=== PATIENT | female | born 1965 | race Caucasian/White ===

== ENCOUNTER → 2018-04-16 | Day surgery (SDC) | payer OTHER ==
[~2018-04-16] MED LIST: CRANBERRY TABL1 EACH PO; FENTANYL CITRATE/PF 100MCG/2 ML INJ ONE; HYOSCYAMINE SULFATE 0.5 MG/ML AMP ONE; LIDOCAINE HCL 2% LOCAL INJ 5 ML SDV VIAL INJ ONE; MIDAZOLAM HCL 2 MG/2 ML VIAL ONE; MULTIVITAMINS1 EAC8 PO; PROPOFOL IV EMULSION 10 MG/ML 50 ML VIAL ONE; SUDAFED PO; VITAMIN D1000 UNI1 PO; XYZAL PO
== END | disposition home or self-care (01) ==
LOC: OR 10:19
PROVIDERS: ATTEND Internal Medicine Gastroenterology
DX: Z12.11 Encounter for screening for malignant neoplasm of colon (principal); K57.30 Diverticulosis of large intestine without perforation or abscess without bleeding; K62.89 Other specified diseases of anus and rectum; K64.8 Other hemorrhoids; K64.4 Residual hemorrhoidal skin tags; N20.0 Calculus of kidney; R00.1 Bradycardia, unspecified; Z88.0 Allergy status to penicillin; Z01.810 Encounter for preprocedural cardiovascular examination
CPT/HCPCS: 45380; 81025; 93005; J1980; J2001; J2250

== ENCOUNTER → 2019-10-28 | Outpatient (CLI) | payer OTHER ==
[~2019-10-28] MED LIST changes: +DIATRIZOATE MEGL/DIATRIZOA SOD 30 ML BTL PO ONE; -FENTANYL CITRATE/PF 100MCG/2 ML INJ ONE; -HYOSCYAMINE SULFATE 0.5 MG/ML AMP ONE; +IOPAMIDOL 370 MG/ML 200 ML INFUS..BTL INJ ONE; -LIDOCAINE HCL 2% LOCAL INJ 5 ML SDV VIAL INJ ONE; -MIDAZOLAM HCL 2 MG/2 ML VIAL ONE; -PROPOFOL IV EMULSION 10 MG/ML 50 ML VIAL ONE; +SODIUM CHLORIDE 0.9% 50ML 50 ML ONE
--- NOTE | 2019-10-28 09:20 | Diagnostic Imaging Report ---
EXAMINATION: CT of the abdomen and pelvis with contrast. TECHNIQUE: Spiral CT images of the abdomen and pelvis were performed from the lung bases to the lesser trochanters after the intravenous administration of 100 cc Isovue-370 and the oral administration of Gastrografin. Coronal and sagittal reformatted images were obtained. COMPARISON: None. CLINICAL HISTORY:Lower abdominal pain, constipation DISCUSSION: ABDOMEN/PELVIS: LOWER THORAX:Subsegmental atelectasis in the dependent portions of the lower lobes. Lung bases are otherwise unremarkable. HEPATOBILIARY: No focal hepatic lesions. No intra-or extrahepatic biliary ductal dilation. The gallbladder has been removed with metallic clips in the gallbladder fossa. SPLEEN: No splenomegaly. Small splenule along the anterior aspect of the spleen. PANCREAS: No focal masses or ductal dilatation. ADRENALS: No adrenal nodules. KIDNEYS/URETERS: Subcentimeter hypoattenuating lesion in the upper and lower pole of the right kidney are too small to further characterize but likely to represent small cysts. 3-4 mm calculus in the lower pole of the left kidney without hydronephrosis. No solid renal mass lesion. No ureteral or bladder calculi. PELVIC ORGANS/BLADDER: Urinary bladder is incompletely distended but otherwise unremarkable. Multiple pelvic phleboliths. Uterus is anteflexed and appears normal. No adnexal mass. PERITONEUM/RETROPERITONEUM: No ascites. No pneumoperitoneum. LYMPH NODES: No intra-abdominal, retroperitoneal, pelvic or inguinal lymphadenopathy. VESSELS: Minimal atherosclerotic calcification of the abdominal aorta without aneurysmal dilatation. Portal vein, splenic vein, and central superior mesenteric vein are patent. GI TRACT: The large bowel is notable for a few diverticula along the distal sigmoid colon without wall thickening or inflammatory change. The appendix is normal. There is no small bowel dilatation to suggest obstruction. BONES AND SOFT TISSUE: No osseous destructive lesions. Minimal degenerative disc changes of the lumbar spine. No soft tissue abnormalities. IMPRESSION: No acute intra-abdominal or pelvic CT abnormalities. Minimal large bowel diverticulosis without evidence of diverticulitis. Nonobstructing left lower pole renal calculus. Minimal atherosclerotic vascular disease. Signed by: Dr. Rafat Ramírez M.D. on 10/28/2019 9:18 AM
== END ==
LOC: CT 07:22
PROVIDERS: ATTEND Internal Medicine Gastroenterology
DX: R10.30 Lower abdominal pain, unspecified (principal)
CPT/HCPCS: 74177; Q9967

== ENCOUNTER 2020-03-13 13:06 | Emergency (ER) | payer OTHER ==
[~2020-03-13] VITALS: Ht 175.3 cm; Wt 71.2 kg
[~2020-03-13 13:06] MED LIST changes: -DIATRIZOATE MEGL/DIATRIZOA SOD 30 ML BTL PO ONE; -IOPAMIDOL 370 MG/ML 200 ML INFUS..BTL INJ ONE; -SODIUM CHLORIDE 0.9% 50ML 50 ML ONE
--- NOTE | 2020-03-13 14:17 | Diagnostic Imaging Report ---
Exam: Head CT without contrast History: Trauma, fall Comparison studies: None Technique: Axial images were obtained from the skull base to the vertex. Coronal and sagittal images reconstructed from the axial data. Dose modulation, iterative reconstruction, and/or weight based adjustment of the mA/kV was utilized to reduce the radiation dose to as low as reasonably achievable. Radiation dose: Total DLP: 921.4 mGy*cm. Estimated effective dose: DLP x 0.015 Intravenous contrast: None Findings: Scalp: Left lateral frontal scalp hematoma. No retained hyperdense foreign body. Bones: No fractures, blastic or lytic lesions. Brain sulci: Appropriate for age. Ventricles: Normal in size and configuration. No hydrocephalus. Extra-axial spaces: No masses, no fluid collection. Parenchyma: No abnormal densities. No masses, hemorrhage, acute or chronic vascular insults. Sellar/suprasellar region: No abnormalities. Craniocervical junction: Patent foramen magnum. No Chiari one malformation. Incidental findings: Atherosclerotic calcifications in the carotid siphons. IMPRESSION: 1. Left frontal scalp hematoma. 2. No fracture or acute intracranial abnormality. Signed by: Dr. Rafat Martinez M.D. on 03/13/2020 2:14 PM
--- NOTE | 2020-03-13 14:38 | Diagnostic Imaging Report ---
ELBOW LEFT COMPLETE - 3 views HISTORY: Pain. COMPARISON: None available. FINDINGS: Bones: No acute displaced fracture. Osseous alignment is within normal limits. Joints: The joint spaces are well-maintained. Soft tissues: The soft tissues appear unremarkable. IMPRESSION: No acute radiographic abnormality. Signed by: Aldair Abdi MD on 03/13/2020 2:34 PM
--- NOTE | 2020-03-13 14:51 | Emergency Department Note ---
History of Present Illnes History of Present Illness Chief Complaint: General Medicine Complaints History of Present Illness This is a 54 year old female arrives the ED after having a be chemical fall resulting in abrasion over her left elbow and forehead. Patient states she was concerned she might of had a concussion and wanted to come to the ER to be evaluated. Patient states she is pain-free at the time and is not requiring any pain medicines. Historian: Patient Arrival Mode: Car Onset (how long ago): minute(s) Severity: mild Onset quality: sudden Duration (how long): hour(s) Timing of current episode: intermittent Progression: unchanged Chronicity: new Context: Reports trauma/injury Past Medical/Family History Physician Review I have reviewed the patient's past medical and family history. Any updates have been documented here. Past Medical History Recent Fever: No Clinical Suspicion of Infectio: No New/Unexplained Change in Ment: No Past Medical History: None Past Surgical History: Cholecysctectomy, T&A Other Surgery: SINUS SURGERY Social History Smoking Cessation: Never Smoker Counseling Performed: No Alcohol Use: None Any Illegal Drug Use: No TB Exposure/Symptoms: No Physically hurt or threatened: No Family History Family history of heart diseas: No Other Last Tetanus: UNKNOWN Any Pre-Existing Lines (PICC,: No Is patient up to date on immun: Yes Last Flu: utd Last Pneumovax: utd Review of Systems Review of Systems Constitutional: Reports no symptoms EENTM: Reports no symptoms Cardiovascular: Reports no symptoms Respiratory: Reports no symptoms Gastrointestinal: Reports no symptoms Genitourinary: Reports no symptoms Musculoskeletal: Reports no symptoms, Reports joint pain Integumentary: Reports no symptoms Neurological: Reports as per HPI, Reports headache Psychological: Reports no symptoms Endocrine: Reports no symptoms Hematological/Lymphatic: Reports no symptoms Physical Exam Related Data Allergies: Coded Allergies: Penicillins (Verified Allergy, Unknown, 03/13/20) Triage Vital Signs Vital Signs Date Time Temp Pulse Resp B/P (MAP) Pulse Ox O2 Delivery O2 Flow Rate FiO2 03/13/20 13:12 96.2 64 16 162/84 100 Physical Exam CONSTITUTIONAL Constitutional: Present well-developed, Present well-nourished HENT HENT: Present normocephalic, Present atraumatic, Present oropharynx clear/moist, Present nose normal, Present other (left-sided forehead hematoma noted over eyebrow, no bleeding, no crepitus) HENT L/R: Present left TM normal, Present right TM normal, Present left ext ear normal, Present right ext ear normal EYES Eyes: Reports PERRL, Reports conjunctivae normal NECK Neck: Present ROM normal PULMONARY Pulmonary: Present effort normal, Present breath sounds normal CARDIOVASCULAR Cardiovascular: Present regular rhythm, Present heart sounds normal, Present capillary refill normal, Present normal rate GASTROINTESTINAL Abdominal: Present soft, Present nontender, Present bowel sounds normal GENITOURINARY Genitourinary: Present exam deferred SKIN Skin: Present warm, Present dry MUSCULOSKELETAL Musculoskeletal: Present ROM normal, Present other (positive superficial abrasion noted over left lateral elbow, full range of motion and otherwise soft compartments) NEUROLOGICAL Neurological: Present alert, Present oriented x 3, Present no gross motor or sensory deficits PSYCHOLOGICAL Psychological: Present mood/affect normal, Present judgement normal Results Imaging Imaging results reviewed: Yes Impressions CT brain and elbow x-ray unremarkable Assessment & Plan Medical Decision Making MDM 54-year-old well-appearing female arrived to the ED with complaints of elbow pain and possible head injury after fall. Patient individually steady gait, no neuro deficits and range of motion. CT and x-ray were done at patient's request unremarkable. Patient's pain was well-controlled and she was discharged home with outpatient follow-up. Assessment & Plan Final Impression: (1) Concussion (2) Fall (3) Elbow abrasion Last Vital Signs Date Time Temp Pulse Resp B/P (MAP) Pulse Ox O2 Delivery O2 Flow Rate FiO2 03/13/20 13:12 96.2 64 16 162/84 100 Home Meds Reported Medications Cholecalciferol (Vitamin D3) (VITAMIN D) 1,000 Unit Tablet, 5000 UNIT PO DAILY, #30 TAB 04/12/18 Cranberry/Vit C/L. Sporogenes (CRANBERRY TABLET) 1 Each Tablet, PO DAILY 04/12/18 [Sudafed] No Conflict Check, PO PRN 04/12/18 Multivitamin (MULTIVITAMINS) 1 Each Tablet, PO DAILY 09/23/13 [Xyzal] No Conflict Check, PO HS 09/23/13 KAEL KIRK DO Mar 13, 2020 14:51
[2020-03-13] MEDS ORDERED: ONDANSETRON HCL 4 MG ORAL DISINTEGRATING TAB PO ONE (15:00)
[2020-03-13] MEDS ORDERED: HYDROCODONE/APAP 5MG-325MG TAB PO ONE (15:00)
--- NOTE | 2020-03-13 15:03 | NUR ---
applied dressing to abrasion to left elbow
== END 2020-03-13 16:10 | disposition home or self-care (01) ==
LOC: ER 13:06
DX: S06.0X0A Concussion without loss of consciousness, initial encounter (principal); S50.312A Abrasion of left elbow, initial encounter; W01.198A Fall on same level from slipping, tripping and stumbling with subsequent striking against other object, initial encounter; Y93.01 Activity, walking, marching and hiking; Y92.29 Other specified public building as the place of occurrence of the external cause
CPT/HCPCS: 70450; 73080; 99284; Q0162

== ENCOUNTER → 2023-02-23 | Day surgery (SDC) | payer OTHER ==
[2023-02-21 15:55] LABS: BASOPHILS % 0.6 % (0.0-1.0); EOSINOPHILS # (AUTO) 0.1 (0.0-0.4); EOSINOPHILS % 0.7 % (0.0-6.0); HEMATOCRIT 44.4 % (34.2-44.1); HEMOGLOBIN 14.3 g/dL (12.0-16.0); LYMPHOCYTES # (AUTO) 1.8 (1.0-3.2); LYMPHOCYTES % 27.3 % (18.0-39.1); MEAN CORPUSCULAR HEMOGLOBIN 30.4 pg (28-32); MEAN CORPUSCULAR HGB CONC 32.2 g/dL (31-35); MEAN CORPUSCULAR VOLUME 94.3 fL (81-99); MONOCYTES # (AUTO) 0.5 (0.2-0.8); MONOCYTES % 6.7 % (4.4-11.3); NEUTROPHILS # (AUTO) 4.3 (2.1-6.9); NEUTROPHILS % 64.3 % (38.7-80.0); PLATELET COUNT 258 x10e3/uL (140-360); RED BLOOD COUNT 4.71 x10e6/uL (3.6-5.1); RED CELL DISTRIBUTION WIDTH 12.5 % (11.7-14.4)
[2023-02-21 16:17] LABS: ALBUMIN 4.2 g/dL (3.5-5.0); ALBUMIN/GLOBULIN RATIO 1.6 (0.8-2.0); ANION GAP 12.9 mmol/L (8-16); CALCIUM 9.2 mg/dL (8.4-10.2); CREATININE, SERUM 0.69 mg/dL (0.57-1.11); POTASSIUM 3.9 mmol/L (3.5-5.1)
[~2023-02-23] MED LIST changes: +BUPIVACAINE 0.5%/EPI 30 ML SDV INJ ONE; +DEXAMETHASONE SOD PHOS INJ 4 MG/ML SDV ONE; +FENTANYL CITRATE/PF 100MCG/2 ML INJ ONE; +GLYCOPYRROLATE INJ 0.2 MG/ML VIAL ONE; +LACTATED RINGER'S 1,000 ML ONE; +LIDOCAINE HCL 2% LOCAL INJ 5 ML SDV VIAL INJ ONE; +LOSARTAN POTASS25 MG PO; +METOCLOPRAMIDE HCL 10 MG/2ML VIAL ONE; +MIDAZOLAM HCL 2 MG/2 ML VIAL ONE; +MYRBETRIQ25 MG PO; +ONDANSETRON HCL INJ 2MG/ML 2ML 2 MG/ML VIAL ONE; +POVIDONE IODINE 0.05% 0.05 % ML PO ONE; +PROPOFOL IV EMULSION 10 MG/ML 20 ML VIAL ONE
[2023-02-23 12:45] VITALS: BP 116/76; PULSE 71; RESP 18; O2SAT 99
== END | disposition home or self-care (01) ==
LOC: OR 08:09
PROVIDERS: ATTEND Surgery
DX: M62.89 Other specified disorders of muscle (principal); I10 Essential (primary) hypertension; Z88.0 Allergy status to penicillin; Z01.810 Encounter for preprocedural cardiovascular examination; Z01.812 Encounter for preprocedural laboratory examination; Z01.818 Encounter for other preprocedural examination; Z79.899 Other long term (current) drug therapy
CPT/HCPCS: 21556; 36415; 71046; 80053; 85025; 88304; 93005; J1100; J2001; J2250; J2405; J2704; J2765; J3010; J7121